=== PATIENT | male | born 1925 | race Caucasian/White ===

== ENCOUNTER 2017-08-19 17:46 | Inpatient (IN) | payer MEDICARE ==
[~2017-08-19] VITALS: Ht 177.8 cm; Wt 71.2 kg
[2017-08-19] MEDS ORDERED: AMLO10TA2 PO (18:11)
[2017-08-19] MEDS ORDERED: METF500T4 PO (18:11)
[2017-08-19] MEDS ORDERED: HYDR-3240 PO (18:11)
[2017-08-19] MEDS ORDERED: GLIP10TA13 PO (18:11)
[2017-08-19] MEDS ORDERED: ACETAMINOPHEN 500 MG TABLET ONE (18:16)
[2017-08-19] MEDS ORDERED: ACETAMINOPHEN 500 MG TABLET PO ONE (18:30)
[2017-08-19] MEDS ORDERED: SODIUM CHLORIDE 0.9% 1,000ML IVBOLUS ONE (18:30)
[2017-08-19] MEDS ORDERED: SODIUM CHLORIDE FLUSH 10ML SYR IVF ONE (18:30)
[2017-08-19 18:43] LABS: HEMATOCRIT 40.2 % (39.2-51.8); HEMOGLOBIN 13.2 g/dL (13.7-18.0); WHITE BLOOD COUNT 6.9 x10^3/uL (3.4-10)
[2017-08-19 18:54] LABS: BLOOD UREA NITROGEN 16 mg/dL (7-18)
[2017-08-19 18:59] LABS: ASPARTATE AMINO TRANSFERASE 12 U/L (15-37)
[2017-08-19] MEDS ORDERED: CEFTRIAXONE PMX 1GM/50ML 50 ML ONE (19:00)
[2017-08-19] MEDS ORDERED: AZITHROMYCIN 500 MG in SODIUM CHLORIDE 0.9% 250 ML IV ONE (19:00)
[2017-08-19] MEDS ORDERED: CEFTRIAXONE PMX 1GM/50ML 50 ML IV ONE (19:00)
[2017-08-19 20:05] LABS: IS PT STATUS REG ER OR PRE ER? YES
[2017-08-19] MEDS ORDERED: SODIUM CHLORIDE 0.9% 1,000 ML IV SCH (21:36)
[2017-08-19] MEDS ORDERED: GUAIFENESIN/DM 200-20MG, 10ML UDC PO PRN (22:00)
[2017-08-19] MEDS ORDERED: ONDANSETRON 2MG/ML, 2ML IVPush PRN (22:00)
[2017-08-19] MEDS ORDERED: POLYETHYLENE GLYCOL 17 GM PACKET PO PRN (22:00)
[2017-08-19] MEDS ORDERED: DEXTROSE 4 GM TAB.CHEW PO PRN (22:00)
[2017-08-19] MEDS ORDERED: DEXTROSE 50%, 50ML SYRINGE IVPush PRN (22:00)
[2017-08-19] MEDS ORDERED: GLUCAGON 1 MG IM PRN (22:00)
[2017-08-19] MEDS ORDERED: LEVOFLOXACIN/PMX 500MG/100ML 100 ML IV ONE (22:00)
[2017-08-19 23:32] VITALS: BP 118/65
[2017-08-20] MEDS: ENOXAPARIN 40 MG/0.4 ML SQ SCH ×2 (00:12→23:43)
[2017-08-20 01:52] VITALS: BP 136/70
[2017-08-20] MEDS ORDERED: FLU VACC QS2016-17 (36MOS+)UP/PF 0.5 ML IM-VACC ONE (04:30)
[2017-08-20 05:53] LABS: HEMATOCRIT 41.8 % (39.2-51.8); HEMOGLOBIN 13.8 g/dL (13.7-18.0); WHITE BLOOD COUNT 8.5 x10^3/uL (3.4-10)
[2017-08-20 06:17] LABS: BLOOD UREA NITROGEN 16 mg/dL (7-18)
[2017-08-20 06:24] VITALS: BP 153/71
[2017-08-20 07:55] VITALS: BP 135/82
[2017-08-20] MEDS: AMLODIPINE 5 MG TABLET PO SCH (08:26)
[2017-08-20] MEDS ORDERED: MAGNESIUM SULFATE PMX 2GM/50ML 50 ML IV ONE (08:30)
[2017-08-20] MEDS ORDERED: POTASSIUM PHOSPHATE 44 MEQ in SODIUM CHLORIDE 0.9% 500 ML IV ONE (08:30)
[2017-08-20] MEDS ORDERED: metFORMIN 500 MG TABLET PO SCH (09:00)
[2017-08-20] MEDS ORDERED: PNEUMOCOCCAL 23 VACCINE IM-VACC ONE (11:00)
[2017-08-20] MEDS: SODIUM CHLORIDE FLUSH 10ML SYR IVF SCH ×2 (12:38→21:27)
[2017-08-20] MEDS: INSULIN ASPART 100 UNITS/ML, PEN SQ-INSULIN SCH ×3 (12:39→21:27)
[2017-08-20 14:00] VITALS: BP 148/77
[2017-08-20] MEDS ORDERED: ACETAMINOPHEN 325 MG TABLET PO PRN (16:30)
[2017-08-20] MEDS ORDERED: GLUCAGON 1 MG IM PRN (17:00)
[2017-08-20 18:44] VITALS: BP 149/83
[2017-08-20] MEDS: TRAZODONE 50MG TABLET PO SCH (21:27)
[2017-08-20] MEDS ORDERED: LEVOFLOXACIN/PMX 250MG/50ML 50 ML IV SCH (23:00)
[2017-08-21 00:50] VITALS: BP 137/80
[2017-08-21] MEDS: CEFTRIAXONE PMX 1GM/50ML 50 ML IV SCH (05:12)
[2017-08-21 05:33] LABS: HEMATOCRIT 36.8 % (39.2-51.8); WHITE BLOOD COUNT 9.2 x10^3/uL (3.4-10)
[2017-08-21 05:41] LABS: BLOOD UREA NITROGEN 17 mg/dL (7-18)
[2017-08-21] MEDS: INSULIN ASPART 100 UNITS/ML, PEN SQ-INSULIN SCH ×4 (07:00→21:16)
[2017-08-21 07:09] VITALS: BP 127/76
[2017-08-21] MEDS: SODIUM CHLORIDE FLUSH 10ML SYR IVF SCH ×2 (08:22→21:16)
[2017-08-21] MEDS: AMLODIPINE 5 MG TABLET PO SCH (08:22)
[2017-08-21] MEDS: TAMSULOSIN 0.4 MG CAP.ER.24H PO SCH (10:30)
[2017-08-21 15:20] VITALS: BP 132/64
[2017-08-21] MEDS: FINASTERIDE 5 MG TABLET PO SCH (16:03)
[2017-08-21] MEDS ORDERED: CEFD300C37 PO (16:08)
[2017-08-21] MEDS ORDERED: FINA5TAB4 PO (16:08)
[2017-08-21] MEDS ORDERED: TAMS-11 PO (16:08)
[2017-08-21 19:40] VITALS: BP 121/64
[2017-08-21] MEDS: TRAZODONE 50MG TABLET PO SCH (21:00)
[2017-08-22] MEDS: ENOXAPARIN 40 MG/0.4 ML SQ SCH (00:42)
[2017-08-22 02:05] VITALS: BP 125/66
[2017-08-22] MEDS: CEFTRIAXONE PMX 1GM/50ML 50 ML IV SCH (05:39)
[2017-08-22 05:45] LABS: BLOOD UREA NITROGEN 16 mg/dL (7-18)
[2017-08-22 09:00] VITALS: BP 127/64
[2017-08-22] MEDS: SODIUM CHLORIDE FLUSH 10ML SYR IVF SCH (09:00)
[2017-08-22] MEDS: TAMSULOSIN 0.4 MG CAP.ER.24H PO SCH (09:00)
[2017-08-22] MEDS: INSULIN ASPART 100 UNITS/ML, PEN SQ-INSULIN SCH ×2 (09:28→12:46)
[2017-08-22] MEDS: AMLODIPINE 5 MG TABLET PO SCH (09:30)
[2017-08-22] MEDS: FINASTERIDE 5 MG TABLET PO SCH (09:30)
== END 2017-08-22 15:43 | disposition home or self-care (01) | DRG 725 ==
LOC: SUATTDRO 21:15 → ED 21:30 → EDIP 22:11 → 4WST 22:54
PROVIDERS: ADMIT Hospitalist; ATTEND Hospitalist
DX: N40.1 Benign prostatic hyperplasia with lower urinary tract symptoms (principal); J15.9 Unspecified bacterial pneumonia; E44.0 Moderate protein-calorie malnutrition; I11.0 Hypertensive heart disease with heart failure; J44.0 Chronic obstructive pulmonary disease with (acute) lower respiratory infection; I50.9 Heart failure, unspecified; I31.3 Pericardial effusion (noninflammatory); N13.2 Hydronephrosis with renal and ureteral calculous obstruction; J98.11 Atelectasis; N30.00 Acute cystitis without hematuria; N13.8 Other obstructive and reflux uropathy; E11.65 Type 2 diabetes mellitus with hyperglycemia; Z96.659 Presence of unspecified artificial knee joint; N28.1 Cyst of kidney, acquired; Z66 Do not resuscitate; Z87.891 Personal history of nicotine dependence; Z91.19 Patient's noncompliance with other medical treatment and regimen; Z99.81 Dependence on supplemental oxygen; Z88.2 Allergy status to sulfonamides; Z68.22 Body mass index [BMI] 22.0-22.9, adult; R33.8 Other retention of urine
CPT/HCPCS: 36415; 71010; 71250; 74000; 74176; 76770; 80048; 80053; 81001; 82962; 83605; 83735; 83880; 84100; 84145; 84484; 85025; 87040; 87086; 87324; 89055; 90686; 90732; 93005; 93306; 96361; 96365; 96368; J0456; J0696; J1650; J1815; J1956; J3475; J7030; J7040; J7050